=== PATIENT | female | born 1995 | race Hispanic/Latino ===

== ENCOUNTER 2022-06-23 14:38 | Emergency (ER) | payer OTHER ==
[~2022-06-23] VITALS: Ht 160 cm; Wt 97.5 kg
[2022-06-23] MEDS ORDERED: TAMIFLU75 MG PO (15:26)
[2022-06-23] MEDS ORDERED: BROMPHENIR-PSE118 ML PO (15:26)
== END 2022-06-23 15:24 | disposition home or self-care (01) ==
LOC: FSED 15:13
DX: R05.9 Cough, unspecified (principal); J20.9 Acute bronchitis, unspecified; J10.1 Influenza due to other identified influenza virus with other respiratory manifestations
CPT/HCPCS: 83518; 87400; 99282

== ENCOUNTER 2023-01-08 21:07 | Emergency (ER) | payer OTHER ==
[~2023-01-08] VITALS: Ht 160 cm; Wt 100.2 kg
[~2023-01-08 21:07] MED LIST: BROMPHENIR-PSE118 ML PO; TAMIFLU75 MG PO
[2023-01-08] MEDS ORDERED: PREDNISONE 20 MG TAB PO STA (21:31)
[2023-01-08] MEDS ORDERED: ALBUTEROL/IPRATROPIUM 3 ML NEB NEB STA (21:31)
[2023-01-08] MEDS ORDERED: PREDNISONE 20 MG TAB ONE (21:39)
[2023-01-08] MEDS ORDERED: ALBUTEROL/IPRATROPIUM 3 ML NEB ONE (21:40)
[2023-01-08] MEDS ORDERED: VENTOLIN HFA18 GM INH (22:05)
[2023-01-08] MEDS ORDERED: PREDNISONE20 MG PO (22:05)
[2023-01-08] MEDS ORDERED: LEVOFLOXACIN750 MG PO (22:05)
== END 2023-01-08 22:53 | disposition home or self-care (01) ==
LOC: FSED 21:11
DX: R05.9 Cough, unspecified (principal); J45.909 Unspecified asthma, uncomplicated
CPT/HCPCS: 71046; 83518; 87400; 99283; J7512

== ENCOUNTER 2025-03-15 13:28 | Emergency (ER) | payer OTHER ==
[~2025-03-15] VITALS: Ht 162.6 cm; Wt 100.2 kg
[~2025-03-15 13:28] MED LIST changes: +LEVOFLOXACIN750 MG PO; +PREDNISONE20 MG PO; +VENTOLIN HFA18 GM INH
[2025-03-15 13:37] VITALS: TEMP 98.6
[2025-03-15] MEDS: IBUPROFEN 600 MG TAB PO ONE (14:05)
[2025-03-15] MEDS: ACETAMINOPHEN 325 MG TAB PO ONE (14:05)
[2025-03-15 14:44] VITALS: PULSE 67; RESP 17
[2025-03-15] MEDS ORDERED: MOTRIN800 MG PO (14:59)
[2025-03-15] MEDS ORDERED: ZANAFLEX4 MG PO (14:59)
[2025-03-15 15:06] VITALS: BP 127/80; O2SAT 99
== END 2025-03-15 15:06 | disposition home or self-care (01) ==
LOC: FSED 13:41
DX: M54.50 Low back pain, unspecified (principal); G89.29 Other chronic pain
CPT/HCPCS: 72131; 81003; 81025; 99283